=== PATIENT | female | born 2000 | race Caucasian/White ===

== ENCOUNTER → 2018-03-03 | Emergency (ER) | payer OTHER ==
[~2018-03-03] MED LIST: Cephalexin CAP* 500 MG PO ONE
--- NOTE | 2018-03-03 13:02 | ED ---
GI/ HPI - HPI Summary HPI Summary: This patient is a 17 year old F presenting to [facility] with a chief complaint of hematuria that began at 0800 today. The patient rates the pain 8/10 in severity. Symptoms aggravated by nothing. Symptoms alleviated by nothing. Patient reports dysuria. Patient denies vomiting, diarrhea, CP, fever, blurred vision, double vision, headache, ear ache, sore throat, neck pain, SOB, back pain, edema, rash, anxiety, and depression. - History of Current Complaint Chief Complaint: EDUrogenitalProblems Stated Complaint: POSS UTI Hx Obtained From: Patient Onset/Duration: Started Hours Ago, Atraumatic, Still Present Timing: Constant Severity: Severe Pain Intensity: 8 Location of Pain: Suprapubic Pain Characteristics: Burning Associated Signs and Symptoms: Positive: Other: - Positive dysuria. Negative vomiting, diarrhea, CP, fever, blurred vision, double vision, headache, ear ache , sore throat, neck pain, SOB, back pain, edema, rash, anxiety, and depression Aggravating Factor(s): Nothing Alleviating Factor(s): Nothing - Allergy/Home Medications Allergies/Adverse Reactions: Allergies Allergy/AdvReac Type Severity Reaction Status Date / Time No Known Allergies Allergy Verified 03/03/18 11:42 PMH/Surg Hx/FS Hx/Imm Hx Previously Healthy: No History: Reports: Other Problems/Disorders - UTI Opthamlomology History: Denies: Hx Legally Blind EENT History: Denies: Hx Deafness Infectious Disease History: No Infectious Disease History: Denies: Traveled Outside the [place] in Last 30 Days - Family History Known Family History: Negative: Cardiac Disease, Diabetes - Social History Occupation: Student Lives: Dormitory/Roommates Alcohol Use: None Hx Substance Use: No Substance Use Type: Reports: None Hx Tobacco Use: No Smoking Status (MU): Never Smoked Tobacco Review of Systems Negative: Fever Negative: Blurred Vision, Diplopia Negative: Sore Throat, Ear Ache Negative: Chest Pain Negative: Shortness Of Breath Negative: Vomiting, Diarrhea Positive: dysuria, hematuria Positive: Other - Negative neck pain and back pain. Negative: Edema Negative: Rash Negative: Headache Negative: Anxious, Depressed All Other Systems Reviewed And Are Negative: No Physical Exam - Summary Physical Exam Summary: Appearance: Alert, conversive, nontoxic appearing Skin: Warm, dry, no mottling, no rashes, no contusions HEENT: EOMI, PERRL, moist mucous membranes Neck: No masses on the neck, supple Respiratory: Clear to auscultation, breath sounds present, no rales, no rhonchi , no wheezes Cardiovascular: RRR, pulses are symmetrical in both lower and upper extremities Abdomen: Soft. Minimal discomfort to the suprapubic area Bowel Sounds: Present Musculoskeletal: No CVA tenderness, no obvious deformity, moving all extremities in a grossly normal manner Neurological: A&Ox3, CN II-XII Intact, moving all extremities symmetrically Psychiatric: Normal affect and mood Triage Information Reviewed: Yes Vital Signs On Initial Exam: Initial Vitals Temp Pulse Resp BP Pulse Ox 98.6 F 62 14 114/73 100 03/03/18 11:43 03/03/18 11:43 03/03/18 11:43 03/03/18 11:43 03/03/18 11:43 Vital Signs Reviewed: Yes Diagnostics - Vital Signs Vital Signs Temp Pulse Resp BP Pulse Ox 03/03/18 11:43 98.6 F 62 14 114/73 100 - Laboratory Lab Statement: Any lab studies that have been ordered have been reviewed, and results considered in the medical decision making process. Re-Evaluation - Re-Evaluation First Eval Re-Evaluation Time: 14:27 Change: Unchanged Comment: Discussed results and plan of care with pt GIGU Course/Dx - Course Course Of Treatment: This patient is a 17 year old F presenting to [facility] with a chief complaint of hematuria that began at 0800 today. I offered the patient a test to rule out ectopic , the patient declined. Physical Exam Findings: Minimal discomfort to the suprapubic area. UA obtained. In the ED course the patient was given Keflex. Patient will be discharged with prescription for Keflex and Pyridium and with follow up from PCP. The patient is agreeable with this plan. - Diagnoses Provider Diagnoses: Urinary tract infection Discharge - Sign-Out/Discharge Documenting (check all that apply): Patient Departure - Discharge home - Discharge Plan Condition: Stable Disposition: HOME Prescriptions: Cephalexin CAP* [Keflex CAP*] 500 mg PO TID #21 cap MDD 3 Phenazopyridine TAB* [Pyridium 100 mg TAB*] 100 mg PO TID #10 tab MDD 3 Patient Education Materials: Urinary Tract Infection in Women (ED) Referrals: [facility] [Provider Group] No Primary Care Phys,NOPCP [Primary Care Provider] - Additional Instructions: Take the antibiotic as instructed. also take the pyridium for the burning when you urinate. it will turn your urine orange. please follow up with your doctor. if you do not have one, I have given you a referral on your discharge papers. Take tylenol and motrin for pain. - Attestation Statements Document Initiated by Scribe: Yes Documenting Scribe: Jyothi Armstrong Provider For Whom Scribe is Documenting (Include Credential): Constanza Hernandez MD Scribe Attestation: I, Jyothi Armstrong, scribed for Constanza Hernandez MD on 03/03/18 at 1427.
[2018-03-03 13:53] LABS: Urine Appearance Turbid; Urine Color Amber
[2018-03-03 14:02] LABS: Urine Blood 3+ (Negative); Urine Ketones Negative (Negative); Urine Protein 2+(100 mg/dL) (Negative); Urine Red Blood Cell 3+(>10/hpf) (Absent); Urine Specific Gravity 1.013 (1.010-1.030); Urine Urobilinogen Negative (Negative); Urine White Blood Cell 3+(>20/hpf) (Absent)
[2018-03-03 14:54] VITALS: BP 118/70
--- NOTE | 2018-03-07 08:37 | PN ---
Progress Note - Progress Note Date of Service: 03/03/18 Note: Pt. seen in ER 03/03/18 for urinary symptoms. She was started on Keflex. Urine culture today is growing 10-25K e. coli susceptible to keflex. No change in treatment needed at this time.
== END | disposition home or self-care (01) ==
LOC: ED 11:41
DX: N39.0 Urinary tract infection, site not specified (principal)
CPT/HCPCS: 81003; 81015; 87077; 87086; 87186; 99282; A9270-GY